=== PATIENT | male | born 1995 | race Caucasian/White ===

== ENCOUNTER 2017-05-24 21:40 | Emergency (ER) | payer BC ==
[2017-05-24] MEDS ORDERED: Sodium Chloride 0.9% 10 ML Syringe FLUSH PRN (22:16)
[2017-05-24] MEDS ORDERED: Famotidine 20 MG/2 ML SDV IVPUSH ONE (22:16)
[2017-05-24] MEDS ORDERED: Alum Hydrox/Mag Hydrox/Simeth 30 ML, Lidocaine 2% 15 ML PO ONE ×2 (22:16)
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
[2017-05-24] MEDS ORDERED: Sucralfate Suspension 1 GM/10 ML Cup PO ONE (23:29)
--- NOTE | 2017-05-25 07:17 | CR ---
Chest: Two views of the chest were obtained. Comparison: No prior chest x-ray. Heart size and mediastinum are within normal limits. Lungs are clear. Bony structures are unremarkable. Impression: 1. Nothing acute is appreciated on two-view chest x-ray. Diagnostic code #1
== END 2017-05-25 00:10 | disposition home or self-care (01) ==
LOC: JD.ED 21:40
DX: K21.9 Gastro-esophageal reflux disease without esophagitis (principal); F17.210 Nicotine dependence, cigarettes, uncomplicated; Z88.1 Allergy status to other antibiotic agents
CPT/HCPCS: 36415; 71020; 80053; 84484; 85027; 93005; 96374; 99285; A9270; J7050; 93010; 99284

== ENCOUNTER 2021-06-04 16:36 | Emergency (ER) | payer BC ==
--- NOTE | 2021-06-04 17:56 | EDM.PDOC ---
ED HPI GENERAL MEDICAL PROBLEM - General Chief Complaint: Lower Extremity Injury/Pain Stated Complaint: LEFT ANKLE INJURY Time Seen by Provider: 06/04/21 17:34 Source of Information: Reports: Patient History Limitations: Reports: No Limitations - History of Present Illness INITIAL COMMENTS - FREE TEXT/NARRATIVE: The patient presents with left ankle pain. He was at work and stepped in a snow covered hole and inverted his ankle. He felt a pop in his ankle and said it was off to the side. He was unable to bear any weight. He has no other injury. Onset: Sudden Duration: Minutes: Location: Reports: Lower Extremity, Left (ankle) Quality: Reports: Sharp Severity: Moderate Improves with: Reports: Immobilization Worsens with: Reports: Movement Context: Reports: Trauma (stepped in a hole) Associated Symptoms: Reports: No Other Symptoms Left ankle Pain Score (Numeric/FACES): 3 - Related Data Allergies Allergy/AdvReac Type Severity Reaction Status Date / Time azithromycin [From Zithromax] Allergy Hives Verified 06/04/21 17:42 Home Meds: Home Meds Pantoprazole 20 mg PO BID 06/04/21 [History] Past Medical History Gastrointestinal History: Reports: GERD - Infectious Disease History Infectious Disease History: Reports: Chicken Pox Social & Family History - Family History Family Medical History: No Pertinent Family History - Tobacco Use Tobacco Use Status *Q: Current Every Day Tobacco User Years of Tobacco use: 13 Packs/Tins Daily: 1 - Caffeine Use Caffeine Use: Reports: Energy Drinks Other Caffeine Use: energy driniks and soda daily - Recreational Drug Use Recreational Drug Use: No Review of Systems - Review of Systems Review Of Systems: See Below Constitutional: Reports: No Symptoms Eyes: Reports: No Symptoms Ears: Reports: No Symptoms Nose: Reports: No Symptoms Mouth/Throat: Reports: No Symptoms Respiratory: Reports: No Symptoms Cardiovascular: Reports: No Symptoms GI/Abdominal: Reports: No Symptoms Genitourinary: Reports: No Symptoms Musculoskeletal: Reports: Other (Left ankle pain and swelling) ED EXAM, GENERAL - Physical Exam Exam: See Below Exam Limited By: No Limitations General Appearance: Alert, No Apparent Distress Ears: Normal External Exam Nose: Normal Inspection Head: Atraumatic, Normocephalic Neck: Normal Inspection Respiratory/Chest: No Respiratory Distress Extremities: Other (Edema and pain upon palpation to the left lateral malleolus. Good sensation and pulses distally.) Course - Vital Signs Last Recorded V/S: Last Vital Signs Temp 97.6 F 06/04/21 17:43 Pulse 98 06/04/21 17:43 Resp 18 06/04/21 17:43 BP 143/88 H 06/04/21 17:43 Pulse Ox 99 06/04/21 17:43 - Orders/Labs/Meds Orders: Active Orders 24 hr Category Date Time Status Ankle Min 3V Lt [CR] Stat Exams 06/04/21 17:48 Taken - Re-Assessments/Exams Free Text/Narrative Re-Assessment/Exam: 06/04/21 17:56 I ordered an x-ray of his ankle. 06/04/21 18:52 The x-ray shows no fractures. I will get him in a walking boot and crutches. Departure - Departure Time of Disposition: 19:00 Disposition: Home, Self-Care 01 Condition: Good Clinical Impression: Left ankle sprain Qualifiers: Encounter type: initial encounter Involved ligament of ankle: unspecified ligament Qualified Code(s): S93.402A - Sprain of unspecified ligament of left ankle, initial encounter - Discharge Information *PRESCRIPTION DRUG MONITORING PROGRAM REVIEWED*: Not Applicable *COPY OF PRESCRIPTION DRUG MONITORING REPORT IN PATIENT JILL: Not Applicable Referrals: Nereaj Coley MD [Primary Care Provider] - 1 Week Forms: ED Department Discharge, ED Return to Work/School Form Additional Instructions: Ice your ankle for 15 minutes 3 times per day for 2 days. Take tylenol or motrin for pain. Try to elevate your ankle as much as you can for 2 days. Use the crutches for a few days to keep off you your ankle. Were the walking boot to avoid further injury. Follow up with your doctor within a week if you are not better. Sepsis Event Note (ED) - Evaluation Sepsis Screening Result: No Definite Risk - Focused Exam Vital Signs: Vital Signs Temp Pulse Resp BP Pulse Ox 06/04/21 17:43 97.6 F 98 18 143/88 H 99 - My Orders Last 24 Hours: My Active Orders 06/04/21 17:48 Ankle Min 3V Lt [CR] Stat - Assessment/Plan Last 24 Hours: My Active Orders 06/04/21 17:48 Ankle Min 3V Lt [CR] Stat
--- NOTE | 2021-06-04 19:17 | CR ---
Left ankle: 3 views of the left ankle were obtained. Comparison: No prior left ankle study is available. Soft tissue swelling is noted laterally. Ankle mortise is symmetric. No acute fracture, dislocation or other bony abnormality is appreciated. Impression: 1. Soft tissue swelling. 2. No acute fracture or dislocation is seen. Diagnostic code #2
== END 2021-06-04 19:20 | disposition home or self-care (01) ==
LOC: JD.ED 16:36
DX: S93.402A Sprain of unspecified ligament of left ankle, initial encounter (principal); R60.0 Localized edema; K21.9 Gastro-esophageal reflux disease without esophagitis; Z79.899 Other long term (current) drug therapy; Z88.1 Allergy status to other antibiotic agents; X50.1XXA Overexertion from prolonged static or awkward postures, initial encounter
CPT/HCPCS: 73610-26-LT; 73610-LT; 99283-25

== ENCOUNTER 2022-10-10 19:55 | Emergency (ER) | payer BC ==
[2022-10-10 21:11] LABS: ESTIMATED GFR 77 mL/min (>60)
== END 2022-10-10 22:00 | disposition home or self-care (01) ==
LOC: JD.ED 19:55
DX: R10.31 Right lower quadrant pain (principal); Z88.1 Allergy status to other antibiotic agents
CPT/HCPCS: 36415; 80053; 81001; 85025; 86140; 99283; 99284

== ENCOUNTER 2024-07-24 00:53 | Emergency (ER) | payer BC ==
[2024-07-24] MEDS ORDERED: Naloxone 0.4 MG/ML SDV IVPUSH PRN ×3 (02:39→05:42)
[2024-07-24] MEDS: Sodium Chloride 0.9% 1,000 ML IV ONE ×2 (02:45→04:10)
[2024-07-24] MEDS: Ondansetron 4 MG/2 ML SDV IVPUSH ONE (02:47)
[2024-07-24] MEDS: HYDROmorphone 0.5 MG/0.5 ML Syringe IVPUSH ONE ×3 (02:48→07:31)
[2024-07-24 02:50] LABS: BASOPHILS PERCENT AUTO 0.1 % (0.0-1.0); EOSINOPHILS PERCENT AUTO 0.2 % (0.0-6.0); HEMATOCRIT 45.6 % (42.0-52.0); HEMOGLOBIN 16.1 gm/dl (14.0-18.0); IMMATURE GRAN ABSOLUTE AUTO 0.09 K/mm3 (0.00-0.05); IMMATURE GRAN PERCENT AUTO 0.5 % (0.0-0.4); LYMPHOCYTES ABSOLUTE AUTO 1.5 K/mm3 (1.0-4.8); LYMPHOCYTES PERCENT AUTO 8.4 % (24.0-44.0); MEAN CORPUSCULAR HEMOGLOBIN 29.9 pg (28.0-32.0); MEAN CORPUSCULAR HGB CONC 35.3 g/dl (32.0-36.0); MEAN CORPUSCULAR VOLUME 84.6 fl (83.0-99.0); MEAN PLATELET VOLUME 9.7 fl (9.4-12.4); MONOCYTES ABSOLUTE AUTO 0.7 K/mm3 (0.0-0.8); MONOCYTES PERCENT AUTO 3.8 % (0.0-8.0); PLATELET COUNT,PLT 235 K/mm3 (150-400); RED BLOOD CELL COUNT 5.39 M/mm3 (4.52-5.90); WHITE BLOOD CELL COUNT,WBC 17.23 K/mm3 (3.9-11.3)
[2024-07-24 03:14] LABS: A/G RATIO 1.3 (1-2); ALBUMIN 4.2 g/dl (3.4-5.0); ANION GAP 14.3 (5-15); BILIRUBIN TOTAL 0.5 mg/dL (0.2-1.0); BUN/CREATININE RATIO 12.5 (14-18); CALCIUM 9.4 mg/dL (8.5-10.1); CREATININE 1.2 mg/dL (0.7-1.3); EST CRCL DRUG DOSING (CG) 90.83 mL/min; POTASSIUM,K 4.3 mEq/L (3.5-5.1); PROTEIN TOTAL,TP 7.5 g/dl (6.4-8.2)
[2024-07-24] MEDS: Iopamidol 612 MG/ML 30 ML SDV IVPUSH ONE (03:17)
[2024-07-24] MEDS: Iopamidol 612 MG/ML 100 ML Bottle IVPUSH ONE (03:17)
[2024-07-24 03:20] LABS: LACTIC ACID 1.8 mmol/L (0.4-2.0)
[2024-07-24] MEDS: Ketorolac 30 MG/ML SDV IVPUSH ONE (04:17)
[2024-07-24] MEDS: Sodium Chloride 0.9% 10 ML Syringe FLUSH PRN (04:17)
[2024-07-24] MEDS ORDERED: HYDROmorphone 0.5 MG/0.5 ML Syringe IVPUSH ONE (05:42)
[2024-07-24] MEDS: Alum Hydrox/Mag Hydrox/Simeth 30 ML, Lidocaine 2% 15 ML PO ONE (05:45)
[2024-07-24] MEDS: Sodium Chloride 0.9% 1,000 ML IV SCH (05:58)
[2024-07-24] MEDS: Morphine 4 MG/ML Syringe IVPUSH ONE (06:00)
[2024-07-24] MEDS: Famotidine 20 MG/2 ML SDV IVPUSH ONE (07:33)
[2024-07-24] MEDS: Prochlorperazine 10 MG/2 ML SDV IVPUSH ONE (07:39)
== END 2024-07-24 08:20 | disposition home or self-care (01) ==
LOC: JD.ED 00:53
DX: K81.0 Acute cholecystitis (principal); Z88.1 Allergy status to other antibiotic agents; Z79.899 Other long term (current) drug therapy
CPT/HCPCS: 36415; 74177; 76705; 80053; 83605; 83690; 85025; 96361; 96365; 96375; 96376; 99285; J0694; J0780; J1885; J2270; J2405; J3490; J7030; Q9967; 99284